=== PATIENT | male | born 1985 ===

== ENCOUNTER 2023-11-08 12:06 | Emergency (ER) | payer BC ==
[~2023-11-08] VITALS: Ht 170.2 cm; Wt 70.5 kg
[2023-11-08 12:24] VITALS: BP 129/71; PULSE 94; RESP 14; TEMP 97.8
== END 2023-11-08 13:20 | disposition left against medical advice (07) ==
LOC: EMS 12:06
DX: F41.0 Panic disorder [episodic paroxysmal anxiety] (principal); Z53.21 Procedure and treatment not carried out due to patient leaving prior to being seen by health care provider